=== PATIENT | female | born 1950 | race Asian ===

== ENCOUNTER 2018-01-16 21:05 | Emergency (ER) | payer OTHER ==
[~2018-01-16] VITALS: Ht 154.9 cm; Wt 49.9 kg
[2018-01-16 21:16] VITALS: BP 157/107
== END 2018-01-16 22:12 | disposition home or self-care (01) ==
LOC: ER 21:05
DX: H60.12 Cellulitis of left external ear (principal); I10 Essential (primary) hypertension
CPT/HCPCS: 99281; A4606; J7030; Z7610; Z7502